=== PATIENT | male | born 1975 | race Caucasian/White ===

== ENCOUNTER → 2020-06-12 | Outpatient (CLI) | payer OTHER ==
--- NOTE | 2020-06-12 08:22 | XR ---
EXAMINATION TYPE: XR hand complete RT DATE OF EXAM: 06/12/2020 COMPARISON: NONE HISTORY: 44-year-old male pain of right thumb, M79.644 TECHNIQUE: 3 views right hand with an additional coned-down lateral view of the thumb FINDINGS: Mild degenerative spurring and joint space narrowing at the first CMC and triscaphe joints. On the co halie-down lateral view of the thumb, there is a mild 3 mm density along the volar aspect of the first metacarpal head. No additional acute fracture, subluxation, dislocation seen. IMPRESSION: 1. A 3 mm density along the volar aspect of the first metacarpal head. Correlate for pinpoint tendern ess. A small chip fracture is not excluded. 2. Mild osteoarthritic change at the base of the thumb.
== END | disposition home or self-care (01) ==
LOC: RADXRMAIN 07:10
PROVIDERS: ATTEND Family Medicine
DX: M19.041 Primary osteoarthritis, right hand (principal)

== ENCOUNTER → 2020-06-12 | Outpatient (CLI) | payer OTHER ==
--- NOTE | 2020-06-12 09:34 | CT ---
EXAMINATION TYPE: CT abdomen pelvis w con DATE OF EXAM: 06/12/2020 COMPARISON: None HISTORY: Incisional hernia CT DLP: 910 mGycm CONTRAST: CT scan of the abdomen and pelvis is performed with Oral Contrast and with IV Contrast, patient injec emily with 100 ml mL of Isovue 300. FINDINGS: LUNG BASES-: No visible nodule. No infiltrate. LIVER/GB: Fatty liver. No calcified gallstones. No space occupying hepatic lesion. Biliary tree is of normal caliber. PANCREAS: No inflammation. No distinct mass. SPLEEN: No splenic enlargement. No lesion seen. ADRENALS: No nodule. No thickening. KIDNEYS/BLADDER: No hydronephrosis. No nephrolithiasis. No distinct renal mass. Urinary bladder g rossly unremarkable. BOWEL: Normal appendix. Normal bowel caliber. No inflammation. GENITAL ORGANS: No gross abnormality. LYMPH NODES: No greater than 1cm abdominal or pelvic lymph nodes are appreciated. AORTA: No significant abnormality. OSSEOUS STRUCTURES: No significant abnormality is seen. OTHER: Midline fat-containing hernia just cranial to the umbilicus measuring 5.6 cm wide by 1.7 cm AP dimension. IMPRESSION: 1. Midline fat-containing hernia just cranial to the umbilicus measuring 5.6 cm wide by 1.7 cm AP dim ension.
== END | disposition home or self-care (01) ==
LOC: RADCTMAIN 07:02
PROVIDERS: ATTEND Surgery
DX: K42.9 Umbilical hernia without obstruction or gangrene (principal)
CPT/HCPCS: 74177; Q9967

== ENCOUNTER 2020-09-19 07:18 | Observation (INO) | payer OTHER ==
[2020-09-15 08:12] VITALS: BMI 27.3
[~2020-09-19 07:18] MED LIST: ACETAMINOPHEN TAB 500 MG TAB PO ONE; DEXAMETHASONE SOD PHOSPHATE 4 MG/ML 1 ML VIAL IV ONE; HEPARIN SODIUM,PORCINE 5,000 UNIT/ML 1 ML VIAL SQ ONE; LIDOCAINE 1% (10MG/ML) FOR IV START INTRADERMA PRN; MIDAZOLAM 2 MG/2 ML VIAL IV PRN; ONDANSETRON 4 MG/2 ML VIAL IVP ONE
[2020-09-19] MEDS: LACTATED RINGERS 1,000 ML IV SCH (08:25)
[2020-09-19] MEDS ORDERED: PROPOFOL 10 MG/ML 20 ML VIAL IV ONE (08:35)
[2020-09-19] MEDS ORDERED: fentaNYL (PF) 50 MCG/ML 2 ML AMP ONE (08:35)
[2020-09-19] MEDS ORDERED: KETAMINE 10 MG/ML 20 ML VIAL ONE (08:35)
[2020-09-19] MEDS ORDERED: SUCCINYLCHOLINE CHLORIDE VIAL 200 MG/10 ML VIAL IV ONE (08:35)
[2020-09-19] MEDS ORDERED: MIDAZOLAM 2 MG/2 ML VIAL ONE (08:35)
[2020-09-19] MEDS ORDERED: ROCURONIUM 10 MG/ML (10 ML VIAL) IV ONE (08:35)
[2020-09-19] MEDS ORDERED: BUPIVACAINE (PF) 0.25% 30 ML VIAL SQ ONE (08:49)
[2020-09-19] MEDS ORDERED: ALBUTEROL NEBULIZED 2.5 MG/3 ML INHALATION ONE ×2 (09:58→10:31)
--- NOTE | 2020-09-19 10:00 | P.GSHP ---
History of Present Illness H&P Date: 09/19/20 Chief Complaint: Incisional hernia Is a 45-year-old male has developed a recurrent incisional hernia. Patient resents today for laparoscopic robotic-assisted repair. Past Medical History Past Medical History: Asthma, GERD/Reflux, Osteoarthritis (OA), Skin Disorder Additional Past Medical History / Comment(s): Incisional hernia. Eczema. RLE edema. History of Any Multi-Drug Resistant Organisms: None Reported Past Surgical History: Hernia Repair Additional Past Surgical History / Comment(s): multiple hernia surgeries, vasectomy Past Anesthesia/Blood Transfusion Reactions: No Reported Reaction Smoking Status: Current every day smoker - Past Family History Mother Family Medical History: Cancer Additional Family Medical History / Comment(s): skin cancer Medications and Allergies Home Medications Medication Instructions Recorded Confirmed Type Albuterol Inhaler [Ventolin Hfa 2 puff INHALATION RT-QID PRN 06/30/20 09/19/20 History Inhaler] Aspirin/Acetaminophen/Caffeine 2 each PO DIRECTED PRN 06/30/20 09/19/20 History [Excedrin Extra Strength Caplet] Omeprazole [PriLOSEC] 20 mg PO HS 06/30/20 09/19/20 History Allergies Allergy/AdvReac Type Severity Reaction Status Date / Time egg Allergy Anaphylaxis Verified 09/19/20 07:31 Egg Derived Allergy Anaphylaxis Verified 09/19/20 07:31 Surgical - Exam Vital Signs Temp Pulse Resp BP Pulse Ox 99.0 F 89 20 150/80 96 09/19/20 07:30 09/19/20 07:30 09/19/20 07:30 09/19/20 07:30 09/19/20 07:30 - General well developed, well nourished, no distress - Eyes PERRL - ENT normal pinna - Neck no masses - Respiratory normal expansion - Cardiovascular Rhythm: regular - Abdomen Abdomen: soft, non tender Hernia: incisional (3 cm incisional hernia located above the umbilicus) Assessment and Plan Assessment: Social hernia. We'll perform laparoscopic robotic-assisted repair.
[2020-09-19] MEDS ORDERED: HYDROCORTISONE SUCCINATE 100 MG/2 ML VIAL IVP ONE (10:01)
--- NOTE | 2020-09-19 10:05 | P.OP ---
Date of Procedure: 09/19/20 Preoperative Diagnosis: Recurrent incisional hernia Postoperative Diagnosis: Recurrent incisional hernia Procedure(s) Performed: Laparoscopic robotic spare of recurrent incisional hernia Partial omentectomy Anesthesia: MARY KAY Surgeon: Moses Sneed Estimated Blood Loss (ml): 10 Pathology: none sent Condition: stable Disposition: PACU Description of Procedure: The patient was placed on the operating table in the supine position. He received general anesthesia. His abdomen was prepped and draped usual fashion. Using a 5 mm optical trocar under direct visualization the peritoneal cavity was entered in the left upper quadrant. The abdomen was then insufflated. The l aparoscope was placed back into the perineal cavity. Next a 8 mm robotic trocar was placed in the left lower quadrant and a 12 mm robotic trocar was placed in the left lateral position. The original 5 mm trocar was exchanged for a 8 mm robotic trocar. The patient's placed in the left side up position. And the patient was docked to the robot. The incisional hernia was visualized. Using hook cautery the peritoneum over the incisional hernia was excised. Encouraged omentum was dissected free and sent to pathology. The fascial opening was repaired using 0V LOC suture. Next a piece of 11 cm round ventral light ST mesh was placed into the. Cavity and secured with 2 OV lock suture. The patient was undocked the robot. The needles were retrieved. The fascia of the 12 mm trocar site was closed with 0 Ethibond suture. Skin was closed interrupted 3-0 Monocryl suture. Dermabond dressings was applied. Patient tolerated procedure well and was sent to recovery room stable condition.
[2020-09-19] MEDS: HYDROmorphone 0.5 MG/0.5 ML SYRINGE IVP PRN ×7 (10:15→14:18)
[2020-09-19] MEDS ORDERED: HYDROmorphone 1 MG/ML 1 ML SYRINGE IVP PRN (12:01)
[2020-09-19] MEDS ORDERED: IPRATROPIUM-ALBUTEROL 3 ML NEB INHALATION PRN (14:48)
--- NOTE | 2020-09-19 15:10 | XR ---
EXAMINATION TYPE: XR chest 1V portable DATE OF EXAM: 09/19/2020 Comparison: None Clinical History: 45-year-old male shortness of breath Findings: Heart normal size. Aorta and pulmonary vasculature within normal limits. Mild interstitial prominence . No consolidation or pleural effusion seen. Impression: Mild interstitial densities, possible bronchitis or asthma. If concern for early atypical pneumonia, follow-up can be performed.
[2020-09-19] MEDS: IPRATROPIUM-ALBUTEROL 3 ML NEB INHALATION SCH ×2 (15:28→18:34)
[2020-09-19] MEDS: KETOROLAC 15 MG/ML 1 ML VIAL IVP SCH (17:40)
[2020-09-19] MEDS: methylPREDNISolone SOD SUCCI 40 MG/ML 1 ML VIAL IV SCH (17:42)
[2020-09-19] MEDS: FORMOTEROL FUMARATE 20 MCG/2 ML NEBU INHALATION SCH (18:34)
[2020-09-19] MEDS: BUDESONIDE 1 MG/2 ML NEBU INHALATION SCH (18:34)
[2020-09-19] MEDS: SODIUM CHLORIDE 0.9% 1,000 ML IV SCH ×2 (18:54→21:09)
--- NOTE | 2020-09-19 19:24 | P.CNPUL ---
History of Present Illness Consult date: 09/19/20 Reason for consult: dyspnea Chief complaint: Dyspnea, wheezing History of present illness: 45-year-old white male patient with past medical history of moderate persistent bronchial asthma, managed by his primary care physician, and patient is on Ventolin and Symbicort on a regular basis, GERD/reflux, osteoarthritis, eczema, current every day smoker, anxiety, depression present for elective laparoscopic robotic spare of recurrent incisional hernia and partial omentectomy today on 09/19/2020. Following his procedure patient is quite wheezy, bronchospastic, and were asked to see the patient in evaluation for acute exacerbation of moderately persistent bronchial asthma, we obtained a chest x-ray showed mild interstitial densities, the possibility of bronchitis or asthma. No evidence of pneumonia. COVID 19 attest that was negative. Vital signs have been negative, she has been on 2 L of oxygen a pulse ox of 98%, he is on Kefzol in the postoperative period per surgery. We'll add IV steroids, nebulized bronc hodilators. Review of Systems All systems: negative Constitutional: Denies chills, Denies fever Eyes: denies blurred vision, denies pain Ears, nose, mouth and throat: Denies headache, Denies sore throat Cardiovascular: Denies chest pain, Denies shortness of breath Respiratory: Reports dyspnea, Denies cough Gastrointestinal: Denies abdominal pain, Denies diarrhea, Denies nausea, Denies vomiting Musculoskeletal: Denies myalgias Integumentary: Denies pruritus, Denies rash Neurological: Denies numbness, Denies weakness Psychiatric: Denies anxiety, Denies depression Endocrine: Denies fatigue, Denies weight change Past Medical History Past Medical History: Asthma, GERD/Reflux, Osteoarthritis (OA), Skin Disorder Additional Past Medical History / Comment(s): Incisional hernia. Eczema. RLE edema. History of Any Multi-Drug Resistant Organisms: None Reported Past Surgical History: Hernia Repair Additional Past Surgical History / Comment(s): multiple hernia surgeries, vasectomy Past Anesthesia/Blood Transfusion Reactions: No Reported Reaction Past Psychological History: Anxiety, Depression Smoking Status: Current every day smoker Past Alcohol Use History: None Reported Additional Past Alcohol Use History / Comment(s): Smoking since 1989, up to 1 1/2 ppd, < 1 ppd Past Drug Use History: None Reported - Past Family History Mother Family Medical History: Cancer Additional Family Medical History / Comment(s): skin cancer Medications and Allergies Home Medications Medication Instructions Recorded Confirmed Type Albuterol Inhaler [Ventolin Hfa 2 puff INHALATION RT-QID PRN 06/30/20 09/19/20 History Inhaler] Aspirin/Acetaminophen/Caffeine 2 each PO DIRECTED PRN 06/30/20 09/19/20 History [Excedrin Extra Strength Caplet] Omeprazole [PriLOSEC] 20 mg PO HS 06/30/20 09/19/20 History Allergies Allergy/AdvReac Type Severity Reaction Status Date / Time egg Allergy Anaphylaxis Verified 09/19/20 07:31 Egg Derived Allergy Anaphylaxis Verified 09/19/20 07:31 Physical Exam Vitals: Vital Signs Temp Pulse Pulse Pulse Resp BP Pulse Ox 09/19/20 18:55 80 18 09/19/20 18:49 77 18 09/19/20 18:37 72 18 09/19/20 17:00 136/83 09/19/20 16:45 134/83 09/19/20 16:30 132/81 09/19/20 15:39 88 20 09/19/20 15:35 66 20 09/19/20 15:30 98 09/19/20 15:29 81 20 09/19/20 15:15 98.4 F 63 16 154/78 93 L 09/19/20 14:00 98.4 F 66 16 121/81 91 L 09/19/20 13:00 83 16 135/74 98 09/19/20 12:30 70 16 143/86 96 09/19/20 11:48 78 16 128/74 98 09/19/20 11:33 71 16 134/68 98 09/19/20 11:15 91 16 160/88 96 09/19/20 11:00 93 20 166/89 96 09/19/20 10:56 168/96 09/19/20 10:45 86 20 197/100 97 09/19/20 10:32 81 20 169/91 98 09/19/20 10:15 80 22 185/106 99 09/19/20 10:10 99.2 F 106 H 20 195/95 95 09/19/20 08:15 98.1 F 09/19/20 07:30 99.0 F 89 20 150/80 96 Intake and Output 09/19/20 09/19/20 09/19/20 06:59 14:59 22:59 Intake Total 1050 Output Total 5 Balance 1045 Intake: IV 1050 Output: Estimated Blood Loss 5 Other: # Voids 1 1 Weight 82 kg GENERAL EXAM: Alert, very pleasant, 45 showed white male, on 2 L of oxygen, with pulse ox of 98%, resting comfortably in bed, bronchospastic, but no acute distress the comfortable in no apparent distress. HEAD: Normocephalic/atraumatic. EYES: Normal reaction of pupils, equal size. Conjunctiva pink, sclera white. NOSE: Clear with pink turbinates. THROAT: No erythema or exudates. NECK: No masses, no JVD, no thyroid enlargement, no adenopathy. CHEST: No chest wall deformity. Symmetrical expansion. LUNGS: Equal air entry with diffuse wheezes CVS: Regular rate and rhythm, normal S1 and S2, no gallops, no murmurs, no rubs ABDOMEN: Soft, nontender. No hepatosplenomegaly, normal bowel sounds, no guarding or rigidity. Incisions clean dry and intact EXTREMITIES: No clubbing, no edema, no cyanosis, 2+ pulses and upper and lower extremities. MUSCULOSKELETAL: Muscle strength and tone normal. SPINE: No scoliosis or deformity SKIN: No rashes CENTRAL NERVOUS SYSTEM: Alert and oriented -3. No focal deficits, tone is normal in all 4 extremities. PSYCHIATRIC: Alert and oriented -3. Appropriate affect. Intact judgment and insight. Results - Diagnostic Findings Chest x-ray: report reviewed, image reviewed Assessment and Plan Plan: Assessment: #1. Acute exacerbation of moderately persistent chronic bronchial asthma, this x-ray showing no evidence of pneumonia, ruled out for COVID 19 infection #2. Recurrent incisional hernia, status post laparoscopic robotic spare and partial omentectomy, postoperative day 0 #3. GERD/reflux #4. History of multiple hernia surgeries #5. Nicotine dependence #6. Anxiety/depression Plan: We'll add IV steroids, continue with DuoNeb and Pulmicort and Perforomist, no clear evidence of pneumonia on the chest x-ray, he ruled out for COVID 19. Vital signs have been stable, provided incentive spirometer. We'll continue to follow. I performed a history & physical examination of the patient and discussed their management with my nurse practitioner, Cassandra Oh. I reviewed the nurse practitioner's note and agree with the documented findings and plan of care. Lung sounds are positive for diffuse wheezes throughout the lung huggins. The findings and the impression was discussed with the patient. I attest to the documentation by the nurse practitioner. Time with Patient: Greater than 30
[2020-09-20] MEDS: methylPREDNISolone SOD SUCCI 40 MG/ML 1 ML VIAL IV SCH ×2 (00:08→08:45)
[2020-09-20] MEDS: KETOROLAC 15 MG/ML 1 ML VIAL IVP SCH ×3 (00:08→13:17)
[2020-09-20 03:53] VITALS: RESP 18
[2020-09-20] MEDS: LACTATED RINGERS 1,000 ML IV SCH (05:48)
[2020-09-20] MEDS: SODIUM CHLORIDE 0.9% 1,000 ML IV SCH (05:48)
[2020-09-20 07:21] LABS: HCT 42.5 % (39.0-53.0); MCHC 32.9 g/dL (31.0-37.0); MCV 94.3 fL (80.0-100.0); Mean Platelet Volume 6.9; Platelet Count 286 k/uL (150-450); RBC 4.51 m/uL (4.30-5.90); RDW 13.4 % (11.5-15.5); WBC 15.9 k/uL (3.8-10.6)
[2020-09-20] MEDS: BUDESONIDE 1 MG/2 ML NEBU INHALATION SCH (08:54)
[2020-09-20] MEDS: IPRATROPIUM-ALBUTEROL 3 ML NEB INHALATION SCH ×3 (08:54→16:25)
[2020-09-20] MEDS: FORMOTEROL FUMARATE 20 MCG/2 ML NEBU INHALATION SCH (08:54)
[2020-09-20 09:46] LABS: African American GFR (CKD) 124.2 (60.0-200.0); Anion Gap 6.3 mmol/L (4.00-12.00); BUN/Creat Ratio 22.5 Ratio (12.00-20.00); Calcium 9.3 mg/dL (8.7-10.3); Carbon Dioxide 31.7 mmol/L (21.6-31.8); Non-African American GFR(CKD) 107.1 (60.0-200.0); Potassium 4.8 mmol/L (3.5-5.5)
[2020-09-20] MEDS ORDERED: HYDROcodone/APAP 5-325MG 1 EACH TAB PO PRN (11:04)
--- NOTE | 2020-09-20 13:17 | P.DS ---
Providers Date of admission: 09/19/20 23:46 Expected date of discharge: 09/20/20 Attending physician: Moses Sneed Consults: 09/19/20 12:11 Consult Physician Routine Consulting Provider: Nia Dash Consult Reason/Comments: asthma Do you want consulting provider notified?: Yes Primary care physician: Avery Cardenas [facility] Course: Discharge diagnosis 1. Recurrent incisional hernia status post laparoscopic robotic repair of recurrent incisional hernia and partial omentectomy 2. Acute asthma exacerbation Hospital course This is a 45-year-old male who has developed a recurrent incisional hernia. He is status post laparoscopic robotic-assisted repair of recurrent incisional hernia and partial omentectomy. Patient had a decrease in his oxygen saturation after surgery. He required supplemental oxygen. He was evaluated by pulmonary service. Per pulmonary service there is no evidence of pneumonia on chest x-ray and they felt likely his symptoms were related to an asthma exacerbation. Patient was given IV steroids and nebulizer treatments. His shortness of breath has improved. He is off of the oxygen. His oxygen saturation was around 91% on room air. He is ambulating without difficulty. His pain is controlled. He is tolerating regular diet. He denies any nausea or vomiting. Patient is stable for discharge home. Physician Moisture Meter Reader note has been reviewed by physician. Signing provider agrees with the documented findings, assessment, and plan of care. Patient Condition at Discharge: Stable Plan - Discharge Summary Discharge Rx Participant: Yes New Discharge Prescriptions: New Docusate [Colace] 100 mg PO BID #30 capsule Hydrocodone/Acetaminophen [Wildwood 5-325] 1 tab PO Q4HR PRN 3 Days #18 tab PRN Reason: Pain methylPREDNISolone Dose Pack [Medrol Dose Pack] 4 mg PO DIRECTED #21 package Continue Albuterol Inhaler [Ventolin Hfa Inhaler] 2 puff INHALATION RT-QID PRN PRN Reason: Shortness Of Breath Omeprazole [PriLOSEC] 20 mg PO HS Discontinued Aspirin/Acetaminophen/Caffeine [Excedrin Extra Strength Caplet] 2 each PO DIRECTED PRN PRN Reason: Pain Discharge Medication List Albuterol Inhaler [Ventolin Hfa Inhaler] 2 puff INHALATION RT-QID PRN 06/30/20 [History] Omeprazole [PriLOSEC] 20 mg PO HS 06/30/20 [History] Docusate [Colace] 100 mg PO BID #30 capsule 09/20/20 [Rx] Hydrocodone/Acetaminophen [Wildwood 5-325] 1 tab PO Q4HR PRN 3 Days #18 tab 09/20/20 [Rx] methylPREDNISolone Dose Pack [Medrol Dose Pack] 4 mg PO DIRECTED #21 package 09/20/20 [Rx] Follow up Appointment(s)/Referral(s): Nia Dash MD [STAFF PHYSICIAN] - 1 Week Moses Sneed MD [STAFF PHYSICIAN] - 09/28/20 1:30 pm Activity/Diet/Wound Care/Special Instructions: No driving while taking [place] No lifting over 10 pounds You may shower. No soaking or tub baths for 2 weeks Very light activity until you are reevaluated at your follow up appointment with your surgeon Diet regular Discharge Disposition: HOME SELF-CARE
[2020-09-20 15:06] VITALS: BP 133/74; TEMP 98.1
--- NOTE | 2020-09-20 15:15 | P.PN ---
Subjective Progress Note Date: 09/20/20 Principal diagnosis: Dyspnea, wheezing 45-year-old white male patient with past medical history of moderate persistent bronchial asthma, managed by his primary care physician, and patient is on Ventolin and Symbicort on a regular basis, GERD/reflux, osteoarthritis, eczema, current every day smoker, anxiety, depression present for elective laparoscopic robotic spare of recurrent incisional hernia and partial omentectomy today on 09/19/2020. Following his procedure patient is quite wheezy, bronchospastic, and were asked to see the patient in evaluation for acute exacerbation of moderately persistent bronchial asthma, we obtained a chest x-ray showed mild interstitial densities, the possibility of bronchitis or asthma. No evidence of pneumonia. COVID 19 attest that was negative. Vital signs have been negative, she has been on 2 L of oxygen a pulse ox of 98%, he is on Kefzol in the postoperative period per surgery. We'll add IV steroids, nebulized bronchodilators. On 09/20/2020 patient seen in follow-up on general medical surgical floor. Doing good, no acute events overnight, his breathing has improved, less wheezy, minimal wheezing on today's exam. I'll signs have remained stable, he is on room air pulse ox 91%, no fever or chills, his been treated with IV steroids, nebulized bronchodilators, chest x-ray showed mild interstitial densities, possibly related to bronchitis or asthma. His labs have been reviewed, showing white blood cell count of 15.9, and the rest of the CBC was unremarkable, electrolytes and renal profile were unremarkable. He is tolerating oral diet Objective - Vital Signs Vital signs: Vital Signs Temp 98.1 F 09/20/20 15:00 Pulse 97 09/20/20 15:00 Resp 18 09/20/20 15:00 BP 133/74 09/20/20 15:00 Pulse Ox 91 L 09/20/20 15:00 Intake & Output 09/19/20 09/20/20 09/20/20 18:59 06:59 18:59 Intake Total 1050 Output Total 5 Balance 1045 Weight 82 kg Intake: IV 1050 Output: Estimated Blood Loss 5 Other: Voiding Method Toilet Toilet # Voids 1 1 - Exam GENERAL EXAM: Alert, very pleasant, 45 showed white male, on 2 L of oxygen, with pulse ox of 98%, resting comfortably in bed, bronchospastic, but no acute distress the comfortable in no apparent distress. HEAD: Normocephalic/atraumatic. EYES: Normal reaction of pupils, equal size. Conjunctiva pink, sclera white. NOSE: Clear with pink turbinates. THROAT: No erythema or exudates. NECK: No masses, no JVD, no thyroid enlargement, no adenopathy. CHEST: No chest wall deformity. Symmetrical expansion. LUNGS: Equal air entry with diffuse wheezes CVS: Regular rate and rhythm, normal S1 and S2, no gallops, no murmurs, no rubs ABDOMEN: Soft, nontender. No hepatosplenomegaly, normal bowel sounds, no guarding or rigidity. Incisions clean dry and intact EXTREMITIES: No clubbing, no edema, no cyanosis, 2+ pulses and upper and lower extremities. MUSCULOSKELETAL: Muscle strength and tone normal. SPINE: No scoliosis or deformity SKIN: No rashes CENTRAL NERVOUS SYSTEM: Alert and oriented -3. No focal deficits, tone is normal in all 4 extremities. PSYCHIATRIC: Alert and oriented -3. Appropriate affect. Intact judgment and insight. - Labs CBC & Chem 7: 09/20/20 06:42 09/20/20 06:42 Labs: Abnormal Lab Results - Last 24 Hours (Table) 09/20/20 09/20/20 Range/Units 06:42 06:42 WBC 15.9 H (3.8-10.6) k/uL BUN/Creatinine Ratio 22.50 H (12.00-20.00) Ratio Glucose 133 H (70-110) mg/dL Assessment and Plan Plan: Assessment: #1. Acute exacerbation of moderately persistent chronic bronchial asthma, this x-ray showing no evidence of pneumonia, ruled out for COVID 19 infection #2. Recurrent incisional hernia, status post laparoscopic robotic spare and partial omentectomy, postoperative day 0 #3. GERD/reflux #4. History of multiple hernia surgeries #5. Nicotine dependence #6. Anxiety/depression Plan: Patient is doing well, minimal wheezing, vital signs stable he is on room air, no acute events overnight, from pulmonary perspective he can be considered for discharge home today on Medrol Dosepak, he has albuterol and Symbicort and nebulized treatments at home. Follow-up with Dr. Hoffmann in the 7-10 days I performed a history & physical examination of the patient and discussed their management with my nurse practitioner, Cassandra Oh. I reviewed the nurse practitioner's note and agree with the documented findings and plan of care. Lung sounds are positive for diffuse wheezes throughout the lung huggins. The findings and the impression was discussed with the patient. I attest to the documentation by the nurse practitioner. Time with Patient: Less than 30
[2020-09-20 18:58] VITALS: PULSE 97
[2020-09-21] MEDS ORDERED: methylPREDNISolone 4 MG TAB TAPER PO SCH (09:00)
== END 2020-09-20 19:35 | disposition home or self-care (01) ==
LOC: OR 07:18 → 4SSUR 09:44 → OR 23:46
PROVIDERS: ADMIT Surgery; ATTEND Surgery
DX: K43.2 Incisional hernia without obstruction or gangrene (principal); K21.9 Gastro-esophageal reflux disease without esophagitis; M19.90 Unspecified osteoarthritis, unspecified site; L30.9 Dermatitis, unspecified; R60.0 Localized edema; F17.200 Nicotine dependence, unspecified, uncomplicated; Z80.8 Family history of malignant neoplasm of other organs or systems; Z79.899 Other long term (current) drug therapy; Z79.82 Long term (current) use of aspirin; Z91.012 Allergy to eggs; F41.9 Anxiety disorder, unspecified; F32.9 Major depressive disorder, single episode, unspecified; J45.41 Moderate persistent asthma with (acute) exacerbation; Z98.890 Other specified postprocedural states
CPT/HCPCS: 49657; S2900; 71045; 80048; 85027; 87635; 88302; 94640; 94760